=== PATIENT | female | born 1965 | race Caucasian/White ===

== ENCOUNTER 2017-03-08 07:30 | Day surgery (SDC) | payer OTHER ==
[2017-03-08 08:31] VITALS: BMI 21.4
[2017-03-08] MEDS ORDERED: PROPOFOL 20 ML ONE ×2 (08:55)
[2017-03-08 09:39] VITALS: TEMP 97.8
[2017-03-08 12:25] VITALS: BP 126/74; PULSE 72
--- NOTE | 2017-03-09 14:00 | PATH ---
Surgical Pathology Report Patient Name: MARY HORTON [facility]. Rec. #: [id number] /Age/Gender: 1965 (Age: 51) / F Account: [id number] Location: U-ENDOSCOPY Taken: 03/08/2017 Received: 03/08/2017 Reported: 03/09/2017 Physicians: Eduardo Piper M.D. Specimen(s) Received BX RECTUM Clinical History Screening Colitis Final Diagnosis RECTUM, BIOPSY: COLONIC MUCOSA WITH PROMINENT LYMPHOID AGGREGATE. NO EVIDENCE OF MICROSCOPIC COLITIS. Electronically Signed Lizeth Moses M.D. Gross Description Received in formalin, labeled "biopsy rectum" is a molina, irregular portion of soft tissue measuring 0.4 cm. in greatest dimension. The specimen is submitted in toto in one cassette. 03/08/201703/08/2017
== END 2017-03-08 10:15 | disposition home or self-care (01) ==
LOC: JASU-ENDO 07:30
PROVIDERS: ATTEND Internal Medicine Gastroenterology
PROC: 0DBP8ZX Excision of Rectum, Via Natural or Artificial Opening Endoscopic, Diagnostic (ICD-10-PCS; principal; 2017-03-08 08:00)
DX: Z12.11 Encounter for screening for malignant neoplasm of colon (principal); K62.6 Ulcer of anus and rectum
CPT/HCPCS: 84703; 88305-TC